=== PATIENT | female | born 1970 | race Two or more races ===

== ENCOUNTER 2025-02-05 19:03 | Emergency (ER) | payer OTHER ==
[~2025-02-05] VITALS: Ht 167.6 cm; Wt 86.2 kg
[2025-02-05] MEDS ORDERED: FAMOtidine 10 MG/ML (4ML VIAL) IV ONE (20:00)
[2025-02-05] MEDS ORDERED: 0.9 % SODIUM CHLORIDE 1,000 ML IV ONE (20:00)
[2025-02-05] MEDS ORDERED: KETOROLAC TROMETHAMINE 30 MG VIAL IV ONE (20:00)
[2025-02-05] MEDS ORDERED: ONDANSETRON HCL 2 MG/ML VIAL IV ONE (20:00)
[2025-02-05] MEDS ORDERED: KETOROLAC TROMETHAMINE 30 MG VIAL ONE (20:06)
[2025-02-05] MEDS ORDERED: ONDANSETRON HCL 2 MG/ML VIAL ONE (20:06)
[2025-02-05] MEDS ORDERED: FAMOTIDINE/PF 20 MG/2 ML VIAL ONE (20:07)
[2025-02-05 20:57] LABS: BASO % 0.8 % (0.1-1.2); EOS # 0.31 (0.04-0.54); EOS % 5.0 % (0.7-7.0); LYMPH # 2.44 (1.18-3.74); LYMPH % 39.0 % (19.3-53.1); MEAN PLATELET VOLUME 11.80 fl (9.4-12.4); MONO # 0.46 (0.24-0.82); MONO % 7.3 % (4.7-12.5); NEUT # 2.99 (1.56-6.13); NEUT % 47.7 % (34.0-71.1); RED CELL DISTRIBUTION WIDTH 15.9 % (11.6-14.4)
[2025-02-05 21:14] LABS: INR 1.0
[2025-02-05 21:18] LABS: ALT/SGPT 26.0 U/L (12-78); AST/SGOT 20.0 U/L (15-37); BILIRUBIN TOTAL 0.27 mg/dL (0.3-1.2); BUN CREA RATIO 21.0 (7.0-25.0); CREATININE SERUM 0.77 mg/dL (0.55-1.02); GFR 78.72; GLOBULINA 4.8 G/DL (2.4-3.5); GLUCOSE FASTING 96.0 mg/dL (65-100); OSMOLALITY SERUM 279.0 MOSM/KG (275-295)
[2025-02-05 21:54] LABS: URINE APPEARANCE Clear; URINE BILIRRUBIN Negative (NEGATIVE); URINE BLOOD Negative; URINE COLOR Yellow; URINE GLUCOSE Negative (NEGATIVE); URINE KETONE Negative (NEGATIVE); URINE LEUKOCYTE Negative; URINE NITRATE Negative; URINE PROTEIN Negative (NEGATIVE); URINE UROBILINOGEN 0.2 E.U./dl
[2025-02-05 21:58] LABS: URINE BACTERIA 369.5 uL (0.0-1933); URINE EPITHELIAL CELLS 30.1 uL (0.0-38.8); URINE RBC 3.6 uL (0.0-20.8); URINE WBC 15.2 uL (0.0-23.2)
[2025-02-05 22:14] LABS: URINE CAST 0.00 uL (0.0-1.40)
[2025-02-05] MEDS ORDERED: NORFLEX100MG PO (23:29)
== END 2025-02-05 23:51 | disposition home or self-care (01) ==
LOC: ER 19:03
PROVIDERS: General Practice
DX: R10.32 Left lower quadrant pain (principal); D25.9 Leiomyoma of uterus, unspecified

== ENCOUNTER 2025-02-08 19:36 | Emergency (ER) | payer OTHER ==
[~2025-02-08] VITALS: Ht 167.6 cm; Wt 81.6 kg
[~2025-02-08 19:36] MED LIST: NORFLEX100MG PO
[2025-02-08] MEDS ORDERED: KETOROLAC TROMETHAMINE 30 MG VIAL IM STA (20:57)
== END 2025-02-08 21:35 | disposition home or self-care (01) ==
LOC: ER 19:36
DX: R51.9 Headache, unspecified (principal)